=== PATIENT | male | born 1970 | race Caucasian/White ===

== ENCOUNTER → 2017-06-10 | Outpatient (CLI) | payer MEDICARE ==
[~2017-06-10] MED LIST: AMOXICILLIN500 M2 PO; AMOXICILLIN500 MG PO; ANAPROX DS550 MG PO; BENADRYL25 MG PO; CLINDAMYCIN HC300 MG PO; CLINDAMYCIN150 MG PO; CYCLOBENZAPRINE5 M3 PO; DILANTIN100 MG PO; FLEXERIL10 MG PO; FLONASE 0.05% 121 EA NAS; GABAPENTIN TAB600 MG PO; HYDROCODONE BIT1 T11 PO; KEFLEX500 MG PO; LAMICTAL100 MG PO; LEVOFLOXACIN500 MG PO; MEDROL DOSEPAK4 MG PO; MOTRIN800 MG PO; Motrin,Rufen800 MG PO; NAPROSYN500 MG PO; NORCO 325 MG-51 TAB PO; PEN-VK500 MG PO; PERCOCET 650 MG1 TA1 PO; PERIDEX 480 ML480 ML PO; PREDNICOT20 MG PO; TESSALON PERLE100 M1 PO; TORADOL10 MG PO; TYLENOL325 M1 PO; ULTRAM50 MG PO; VICODIN 5/500 505 MG PO; XANAX1 MG PO; XANAX2 MG PO
== END | disposition home or self-care (01) ==
LOC: RAD 09:39
DX: R06.02 Shortness of breath (principal); Z87.891 Personal history of nicotine dependence

== ENCOUNTER → 2017-07-05 | Outpatient (CLI) | payer MEDICARE | END | disposition home or self-care (01) | LOC: CT 07:58 | DX: R91.8 Other nonspecific abnormal finding of lung field (principal); K44.9 Diaphragmatic hernia without obstruction or gangrene ==

== ENCOUNTER → 2017-08-27 | Outpatient (CLI) | payer MEDICARE ==
[2017-08-27 13:20] LABS: BASO # 0.1 10*3/uL (0.0-0.1); BASO % 0.7 % (0.0-1.0); EOS # 0.3 10*3/uL (0.0-0.4); EOS % 4.3 % (1.0-4.0); HEMATOCRIT 44.4 % (42.0-52.0); HEMOGLOBIN 15.1 g/dl (14.0-18.0); LYMPH # 2.3 10*3/uL (1.3-4.4); LYMPH % 31.4 % (27.0-41.0); MEAN CELL VOLUME 89.5 fl (80.0-94.0); MEAN CORPUSCULAR HGB 30.4 pg (27.0-31.0); MEAN PLATELET VOLUME 10.4 fl (9.6-12.3); MONO # 0.7 10*3/uL (0.1-1.0); MONO % 9.2 % (3.0-9.0); NEUT # 3.9 10*3/uL (2.3-7.9); NEUT % 53.8 % (47.0-73.0); PLATELET COUNT AUTOMATED 225 10*3/uL (130-400); RED BLOOD COUNT 4.96 10*6/uL (4.50-5.90); RED CELL DISTRI WIDTH 12.8 % (0-14.5); WHITE BLOOD COUNT 7.2 10*3/uL (4.8-10.8)
[2017-08-28 07:07] LABS: IMMUNOGLOBULIN IgE 002170 25 IU/mL (0-100)
[2017-08-28 08:12] LABS: RHEUMATOID ARTHRITIS FACTOR <10.0 IU/mL (0.0-13.9)
[2017-08-30 12:09] LABS: ANTISCLERODERMA-70 AB <0.2 AI (0.0-0.9)
[2017-08-30 15:09] LABS: ANGIOTENSIN-CONVERTING ENZYME 28 U/L (14-82)
[2017-08-30 16:11] LABS: ATYPICAL PANCA <1:20 titer (Neg:<1:20); CYTOPLASMIC (C-ANCA) <1:20 titer (Neg:<1:20); IGG SUBCLASS 1 451 mg/dL (248-810); IGG SUBCLASS 2 232 mg/dL (130-555); IGG SUBCLASS 3 45 mg/dL (15-102); IGG SUBCLASS 4 11 mg/dL (2-96); PERINUCLEAR (P-ANCA) <1:20 titer (Neg:<1:20)
[2017-08-30 18:05] LABS: BLASTOMYCES ANTIBODY Negative (Neg:<1:1)
== END | disposition home or self-care (01) ==
LOC: LAB 12:53
PROVIDERS: Internal Medicine Critical Care Medicine
DX: J84.9 Interstitial pulmonary disease, unspecified (principal)

== ENCOUNTER → 2017-09-02 | Day surgery (SDC) | payer MEDICARE ==
[~2017-09-02] VITALS: Ht 177.8 cm; Wt 79.8 kg
[~2017-09-02] MED LIST changes: +HYDROCODON-ACE1 EACH PO; +PRILOSEC20 M1 PO
--- NOTE | ~2017-09-02 | PROC NOTE ---
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 PROCEDURE DESCRIPTION: Informed consent obtained with the patient. The patient brought to the OR and placed in supine position. Conscious sedation administered by the Anesthesia Department. After achieving proper sedation, airway introduced into the mouth. The bronchoscope advanced to the airway into laryngeal area. Epiglottis vocal cord seen, which were moving symmetrical movement. Vocal cords were noted yellowish in color. The bronchoscope advanced to the vocal cord into tracheal lumen. Minimal secretion present in the trachea and bilateral endobronchial tree was suctioned out with normal saline wash. BAL specimens obtained in the superior segment of the right lower lobe without difficulty at the site of the previous noted infiltration. CT scan correlation. Procedure well tolerated by the patient without difficulty. Postoperative finding will briefly discussed with the patient in the recovery room. The patient does have outpatient followup appointment to discuss the further findings after the available culture results and other specimen sent to the lab. BRENT MCKENZIE MD CM:PROCNOTE:PROCEDURE NOTE [id number] BRENT NOGUEIRA MD
[2017-09-02 08:00] VITALS: BP 96/62
[2017-09-02 09:18] VITALS: BP 106/74
[2017-09-02 09:33] VITALS: BP 112/67
[2017-09-02 09:48] VITALS: BP 108/76
[2017-09-02 11:54] LABS: BF LYMPHOCYTES 17 %; BF MACROPHAGES 82 %; BF NEUTROPHILS 1 %
[2017-09-03 16:11] LABS: ACID FAST SMEAR Negative (.); ACID FAST SPEC PROCESSING Concentration (.)
== END | disposition home or self-care (01) ==
LOC: SDC 08-31 08:00
PROVIDERS: Family Medicine; Internal Medicine Critical Care Medicine
DX: R91.8 Other nonspecific abnormal finding of lung field (principal); R06.02 Shortness of breath; Z91.010 Allergy to peanuts; Z88.8 Allergy status to other drugs, medicaments and biological substances; J45.909 Unspecified asthma, uncomplicated; K21.9 Gastro-esophageal reflux disease without esophagitis; Z79.899 Other long term (current) drug therapy; F31.9 Bipolar disorder, unspecified

== ENCOUNTER → 2019-04-12 | Outpatient (CLI) | payer MEDICARE ==
[~2019-04-12] MED LIST changes: +CYCLOBENZAPRINE10 MG PO; +VITAMIN D-32000 UNIT PO
== END | disposition home or self-care (01) ==
LOC: MRI 08:31
DX: G44.029 Chronic cluster headache, not intractable (principal); R54 Age-related physical debility; R41.3 Other amnesia; R41.0 Disorientation, unspecified

== ENCOUNTER → 2019-08-30 | Outpatient (CLI) | payer MEDICARE ==
[2019-08-30 18:51] LABS: HEMATOCRIT 41.9 % (42.0-52.0); HEMOGLOBIN 14.1 g/dl (14.0-18.0); MEAN CORPUSCULAR HGB CONC 33.7 g/dl (33.0-37.0); MEAN PLATELET VOLUME 10.3 fl (9.6-12.3); RED BLOOD COUNT 4.41 10*6/uL (4.50-5.90); RED CELL DISTRI WIDTH 12.2 % (0-14.5); WHITE BLOOD COUNT 8.5 10*3/uL (4.8-10.8)
[2019-08-30 19:08] LABS: ALBUMIN 4.4 gm/dl (3.1-4.5); ALKALINE PHOSPHATASE 54 U/L (45-117); BUN 13 mg/dl (7-24); CHLORIDE 107 mmol/L (98-107); CHOLESTEROL 157 mg/dL (<200); HDL CHOLESTEROL 73 mg/dl (40-60); LDL CHOLESTEROL 66 mg/dL (9-159); SGOT/AST 18 IU/L (3-35); SGPT/ALT 23 U/L (12-78); SODIUM 141 mmol/L (136-145); TOTAL PROTEIN 7.4 gm/dL (6.4-8.2); TRIGLYCERIDES 92 mg/dl (<150); VLDL CHOLESTEROL 18 mg/dL (6-40)
[2019-09-01 08:08] LABS: HEPATITIS B SURFACE AG Negative (Negative); HEPATITIS C VIRUS ANTIBODY <0.1 s/co (0.0-0.9)
== END ==
LOC: LAB 18:21
PROVIDERS: Family Medicine
DX: E55.9 Vitamin D deficiency, unspecified (principal); Z88.8 Allergy status to other drugs, medicaments and biological substances; Z91.010 Allergy to peanuts

== ENCOUNTER → 2021-01-28 | Outpatient (CLI) | payer MEDICARE | END | disposition home or self-care (01) | LOC: US 08:58 | PROVIDERS: ATTEND Family Medicine | DX: R10.11 Right upper quadrant pain (principal); Z90.49 Acquired absence of other specified parts of digestive tract ==

== ENCOUNTER → 2021-03-19 | Outpatient (CLI) | payer MEDICARE | END | disposition home or self-care (01) | LOC: RAD 08:35 | PROVIDERS: ATTEND Family Medicine | DX: R05 Cough (principal); R06.02 Shortness of breath ==

== ENCOUNTER 2021-04-05 13:31 | Emergency (ER) | payer MEDICARE ==
[~2021-04-05] VITALS: Wt 68.0 kg
[2021-04-05] MEDS ORDERED: ALA-CORT28.4 GM T (13:58)
== END 2021-04-05 14:02 | disposition home or self-care (01) ==
LOC: ED 13:31
DX: L23.7 Allergic contact dermatitis due to plants, except food (principal); F31.9 Bipolar disorder, unspecified; K21.9 Gastro-esophageal reflux disease without esophagitis; E78.1 Pure hyperglyceridemia; Z79.899 Other long term (current) drug therapy; Z91.010 Allergy to peanuts

== ENCOUNTER 2022-12-11 12:04 | Emergency (ER) | payer MEDICARE ==
[~2022-12-11 12:04] MED LIST changes: +ALA-CORT28.4 GM T
[2022-12-11 12:37] LABS: BASO # 0.1 10*3/uL (0.0-0.1); BASO % 0.4 % (0.0-1.0); EOS % 0.4 % (1.0-4.0); HEMATOCRIT 45.5 % (42.0-52.0); LYMPH # 1.7 10*3/uL (1.3-4.4); LYMPH % 15.1 % (27.0-41.0); MEAN CELL VOLUME 91.9 fl (80.0-94.0); MEAN CORPUSCULAR HGB 31.7 pg (27.0-31.0); MEAN CORPUSCULAR HGB CONC 34.5 g/dl (33.0-37.0); MONO # 0.7 10*3/uL (0.1-1.0); MONO % 6.1 % (3.0-9.0); NEUT # 8.8 10*3/uL (2.3-7.9); NEUT % 77.7 % (47.0-73.0); PLATELET COUNT AUTOMATED 270 10*3/uL (130-400); RED BLOOD COUNT 4.95 10*6/uL (4.50-5.90); RED CELL DISTRI WIDTH 12.3 % (0-14.5); WHITE BLOOD COUNT 11.3 10*3/uL (4.8-10.8)
[2022-12-11 12:48] LABS: ACT PARTIAL THROMBO TIME 26.6 SECONDS (20.0-32.1); INTERNATIONAL NORM RATIO 1.1 (2.0-3.5)
[2022-12-11 12:54] LABS: ALKALINE PHOSPHATASE 68 U/L (46-116); BUN 11 mg/dl (9-23); CHLORIDE 103 mmol/L (98-107); ETHYL ALCOHOL 3.4 mg/dl (<3); LIPASE 33 U/L (12-53); POTASSIUM 3.6 mmol/L (3.4-5.1); SGPT/ALT 15 U/L (10-49); TOTAL PROTEIN 7.5 gm/dL (6.0-8.0)
[2022-12-11 12:58] LABS: BILIRUBIN Negative (Negative); BLOOD Negative (Negative); CLARITY Clear (Clear); COLOR Yellow (Yellow); GLUCOSE Negative (Negative); KETONE 2+ (Negative); LEUKO ESTERASE Negative (Negative); NITRITE Negative (Negative)
[2022-12-11 13:08] LABS: BACTERIA TRACE; HYALINE CAST 0-2; MUCOUS 1+
[2022-12-11 13:10] LABS: URINE AMPHETAMINES Negative (1000ng/ml); URINE BARBITURATES Negative (200ng/ml); URINE BENZODIAZEPINES Positive (200ng/ml); URINE CANNABINOIDS (THC) Positive (50ng/ml); URINE COCAINE Negative (300ng/ml); URINE METHADONE Negative (300ng/ml); URINE OPIATES Negative (300ng/ml); URINE PHENCYCLIDINE Negative (25ng/ml)
== END 2022-12-11 20:15 | disposition home or self-care (01) ==
LOC: ED 12:04
PROVIDERS: Emergency Medicine
DX: G43.909 Migraine, unspecified, not intractable, without status migrainosus (principal); B34.9 Viral infection, unspecified; R10.13 Epigastric pain; R42 Dizziness and giddiness; F31.9 Bipolar disorder, unspecified; Z88.8 Allergy status to other drugs, medicaments and biological substances; Z88.6 Allergy status to analgesic agent; Z91.010 Allergy to peanuts; F10.10 Alcohol abuse, uncomplicated; F12.90 Cannabis use, unspecified, uncomplicated; Z79.899 Other long term (current) drug therapy

== ENCOUNTER 2025-02-27 10:26 | Emergency (ER) | payer MEDICARE ==
[~2025-02-27] VITALS: Wt 63.5 kg
[2025-02-27] MEDS ORDERED: TYLENOL EXTRA500 MG PO (10:58)
[2025-02-27] MEDS ORDERED: AMOX-CLAV 875-1 EACH PO (10:58)
[2025-02-27] MEDS ORDERED: ACETAMINOPHEN 325 MG TAB PO ONE (11:00)
[2025-02-27] MEDS ORDERED: Amoxicillin/Clavulanate Pota 875 MG TAB PO ONE (11:00)
== END 2025-02-27 11:01 | disposition home or self-care (01) ==
LOC: ED 10:26
DX: K04.7 Periapical abscess without sinus (principal); F31.9 Bipolar disorder, unspecified; F12.90 Cannabis use, unspecified, uncomplicated; Z79.899 Other long term (current) drug therapy; Z88.6 Allergy status to analgesic agent; Z88.8 Allergy status to other drugs, medicaments and biological substances; Z91.010 Allergy to peanuts

== ENCOUNTER → 2025-07-05 | Outpatient (CLI) | payer MEDICARE ==
[~2025-07-05] MED LIST changes: +AMOX-CLAV 875-1 EACH PO; +TYLENOL EXTRA500 MG PO
[2025-07-05 11:24] LABS: MEAN CELL VOLUME 95.1 fl (80.0-94.0); MEAN CORPUSCULAR HGB 31.0 pg (27.0-31.0); MEAN PLATELET VOLUME 9.4 fl (9.6-12.3); NUCLEATED RED BLOOD CELL 0.0 % (0.0-0.0); NUCLEATED RED BLOOD CELL 0.0 10*3/uL (0.0-0.0); PLATELET COUNT AUTOMATED 242.0 10*3/uL (130-400); RED CELL DISTRI WIDTH 12.2 % (0-14.5)
[2025-07-05 11:56] LABS: BUN 11 mg/dl (9-23); CPK 109 U/L (34-171); SGPT/ALT 11 U/L (5-49)
== END | disposition home or self-care (01) ==
LOC: LAB 11:04
PROVIDERS: ATTEND Family Medicine
DX: E78.00 Pure hypercholesterolemia, unspecified (principal); N40.0 Benign prostatic hyperplasia without lower urinary tract symptoms; Z79.899 Other long term (current) drug therapy

== ENCOUNTER → 2025-07-23 | Outpatient (CLI) | payer MEDICARE ==
[2025-07-23 11:14] LABS: BUN 10 mg/dl (9-23)
== END | disposition home or self-care (01) ==
LOC: LAB 10:14
PROVIDERS: ATTEND Family Medicine
DX: N18.30 Chronic kidney disease, stage 3 unspecified (principal)